=== PATIENT | female | born 1995 | race Caucasian/White ===

== ENCOUNTER 2021-08-27 21:30 | Emergency (ER) | payer BC, SELFPAY ==
[2021-08-27] MEDS ORDERED: ONDANSETRON 4 MG (ODT) TAB ONE (22:33)
[2021-08-27] MEDS ORDERED: HYDROMORPHONE HCL 1 MG/ML INJ ONE (22:33)
[2021-08-27] MEDS ORDERED: TETANUS & DIPHTHERIA TOX,ADULT 0.5 ML VIAL ONE (22:34)
[2021-08-27] MEDS ORDERED: DOXYCYCLINE 100 MG CAP PO ONE (23:21)
[2021-08-28] MEDS ORDERED: BACI/NEOMYCIN/POLY OINT 15GM TOP ONE (00:45)
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
[2021-08-28] MEDS ORDERED: HYDROMORPHONE HCL 0.5 MG/0.5 ML INJ ONE (01:01)
[2021-08-28 01:43] VITALS: BP 111/80; TEMP 97.8; O2SAT 100
== END 2021-08-28 01:38 | disposition home or self-care (01) ==
LOC: ER 21:30
DX: T25.222A Burn of second degree of left foot, initial encounter (principal); T31.0 Burns involving less than 10% of body surface; X19.XXXA Contact with other heat and hot substances, initial encounter; Z91.048 Other nonmedicinal substance allergy status; Z23 Encounter for immunization
CPT/HCPCS: 90471; 90714; 96372; 99283; J1170; Q0162